=== PATIENT | male | born 1995 | race American Indian/Alaskan Native ===

== ENCOUNTER 2019-01-06 22:49 | Emergency (ER) | payer OTHER ==
[2019-01-06] MEDS ORDERED: KEPPRA 1,000 MG/NS 0.75% 100ML 1,000 MG/100 ML BAG IV ONE (23:00)
[2019-01-06] MEDS ORDERED: ZOFRAN IV ONE (23:01)
[2019-01-06] MEDS ORDERED: BOOSTRIX IM ONE (23:01)
[2019-01-06] MEDS ORDERED: SUBLIMAZE IV ONE (23:01)
--- NOTE | 2019-01-06 23:07 | Emergency Department Report ---
<AMARA KENDRICK - Last Filed: 01/07/19 00:17> ED Seizure HPI - General Stated Complaint: SEIZURE/FACIAL LACERATION Time Seen by Provider: 01/06/19 23:00 - History of Present Illness Initial Comments: Patient is 23 years old male with history of seizure. Patient brought to the emergency room via EMS for evaluation after one episode of seizure happened at home. Seizure was witnessed by patient's mother. Patient presented with a laceration to the right eyebrow and a laceration to the lower lip. Patient denies any other injuries. MD Complaint: seizure -: Sudden Description of Episode: loss of consciousness, tonic-clonic movement, post-event confusion Witnessed:: Yes Trauma: Yes Seizure History: known seizure disorder Place: home Possible Precipitating Event: none Associated Symptoms: denies other symptoms - Related Data Previous Rx's Medication Instructions Recorded Last Taken Type Penicillin Vk [Veetids TAB] 500 mg PO QID 7 Days tablet 01/07/19 Unknown Rx levETIRAcetam [Keppra TAB] 1,500 mg PO BID #60 tablet 01/07/19 Unknown Rx Allergies Allergy/AdvReac Type Severity Reaction Status Date / Time morphine Allergy Rash Verified 01/06/19 23:21 ED Review of Systems Comment: All other systems reviewed and negative Constitutional: denies: chills, fever Respiratory: denies: cough, shortness of breath, SOB with exertion Cardiovascular: denies: chest pain Gastrointestinal: denies: abdominal pain, nausea Musculoskeletal: denies: back pain Neurological: denies: headache, weakness, numbness, paresthesias, confusion, abnormal gait ED Past Medical Hx - Medications Home Medications: Home Medications Medication Instructions Recorded Confirmed Last Taken Type Penicillin Vk [Veetids TAB] 500 mg PO QID 7 Days tablet 01/07/19 Unknown Rx levETIRAcetam [Keppra TAB] 1,500 mg PO BID #60 tablet 01/07/19 Unknown Rx ED Physical Exam - General Limitations: No Limitations General appearance: alert, in no apparent distress - Head Head exam: Present: other (laceration to the right eyebrow, 3 cm) - Eye Eye exam: Present: normal appearance - ENT ENT exam: Present: other (abrasion to the lower lip) - Neck Neck exam: Present: normal inspection, full ROM. Absent: tenderness, mening ismus, lymphadenopathy, thyromegaly - Respiratory Respiratory exam: Present: normal lung sounds bilaterally - Cardiovascular Cardiovascular Exam: Present: regular rate, normal rhythm, normal heart sounds - GI/Abdominal GI/Abdominal exam: Present: soft, normal bowel sounds. Absent: distended, tenderness, guarding, rebound, rigid - Extremities Exam Extremities exam: Present: normal inspection, full ROM, normal capillary refill. Absent: pedal edema, calf tenderness - Back Exam Back exam: Present: normal inspection, full ROM. Absent: tenderness, CVA tenderness (R), CVA tenderness (L), muscle spasm, paraspinal tenderness, vertebral tenderness - Neurological Exam Neurological exam: Present: alert, oriented X3, CN II-XII intact - Skin Skin exam: Present: warm - Laceration /Wound Repair Face Wound Location: face Wound Length (cm): 4 Wound's Depth, Shape: irregular, flap Wound Explored: clean Irrigated w/ Saline (ccs): 50 Betadine Prep?: Yes Anesthesia: 1% Lidocaine Wound Debrided: moderate Wound Repaired With: sutures Suture Size/Type: 5:0 Sterile Dressing Applied?: Yes ED Medical Decision Making - Lab Data Result diagrams: 01/06/19 23:22 ED Disposition Clinical Impression: Seizure, Head injury, Laceration, Periapical abscess Disposition: - TO HOME OR SELFCARE Is pt being admited?: No Condition: Stable Instructions: Suture Care (ED), Laceration (ED), Recurrent Seizures Adult (ED), Dental Abscess (ED) Additional Instructions: Take the medication as prescribed. Follow up with your doctor or the clinic/doctor provided. Return if symptoms worsen as indicated by your discharge instructions. You have been provided a copy of the CAT scan reports. CT facial bones report showed multiple periapical dental abscesses that will need to be treated by a dentist. You have been prescribed antibiotics for these abscesses however, they will not entirely improve until you are treated by a dentist. The CT head shows an abnormality that is suspected to be due to how your brain developed. Follow up with a neurologist and primary care doctor for further evaluation and consideration for MRI if this has not been identified or evaluated in the past. Prescriptions: levETIRAcetam [Keppra TAB] 1,500 mg PO BID #60 tablet Penicillin Vk [Veetids TAB] 500 mg PO QID 7 Days tablet Referrals: [facility] [Provider Group] - 3-5 Days LAUREN NIETO MD [Staff Physician] - 3-5 Days (Neurology) [facility] [Outside] - 3-5 Days <LEONIDES NICE - Last Filed: 01/07/19 04:11> ED Review of Systems ROS: Stated complaint: SEIZURE/FACIAL LACERATION Other details as noted in HPI ED Course Vital Signs 01/06/19 01/06/19 01/07/19 23:07 23:18 01:04 Temperature 98.2 F Pulse Rate 87 72 Respiratory 15 15 23 Rate Blood Pressure 125/71 Blood Pressure 120/70 [Left] O2 Sat by Pulse 98 98 97 Oximetry 01/07/19 02:41 Temperature Pulse Rate 84 Respiratory 18 Rate Blood Pressure Blood Pressure 114/65 [Left] O2 Sat by Pulse 97 Oximetry ED Medical Decision Making - Lab Data Result diagrams: 01/06/19 23:22 01/06/19 23:18 - Radiology Data Radiology results: report reviewed ROCEDURE: CT FACIAL BONES WO CON HISTORY: FALL, FASCIAL TRAUMA FINDINGS: Unenhanced CT of the facial bones was performed and data was reformatted into the sagittal and coronal planes. These images demonstrate that the nasal bones, bony orbits, zygomatic arches, mandible and maxilla appear intact. There is right periorbital soft tissue swelling. Both globes appear intact. There is no retrobulbar hemorrhage. There are periapical dental abscesses of the left maxillary central incisor and the left maxillary lateral incisor. There are periapical dental abscesses of the left mandibular central incisor and the left mandibular lateral incisor. There are periapical dental abscesses of 2 left posterior mandibular molars, sagittal image 46 and there are periapical dental abscesses of the 2 most posterior right mandibular molars. No soft tissue abscess is seen IMPRESSION: No fracture is seen in the facial bones or bony orbits PROCEDURE: CT HEAD/BRAIN WO CON TECHNIQUE: Computerized tomography of the head was performed without contrast material. HISTORY: HEAD INJURY FINDINGS: Unenhanced CT of the brain was performed and demonstrates no acute intracranial hemorrhage, extra-axial fluid collection, midline shift or mass effect. The ventricles and basal cisterns are not effaced. In the medial aspect of left frontal lobe, there is a fluid density structure extending from the anterior margin of the left lateral ventricle to the anterior margin of the frontal lobe. It is possible that this could represent old infarct although the cortex medial to this region is spared and infarct is therefore considered less likely. 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 MRI may be considered if this has not been previously evaluated. The mastoid air cells and middle ears appear clear. There is no evidence of acute sinusitis. The bony calvarium appears intact. IMPRESSION: No acute intracranial hemorrhage Hypodense region in the medial aspect of the frontal lobe, suspicious for developmental brain migrational abnormality - Medical Decision Making Patient has several incidental findings on his CAT scan including periapical multiple periapical abscesses on CT facial bones and possible developmental varient on CT head. Patient will be provided copies of both these cat scans to follow-up with both PMD/neurologist and a dentist for further management. He will be empirically covered with antibiotics for multiple periapical abscesses but we ultimately need a dentist. Critical care attestation.: If time is entered above; I have spent that time in minutes in the direct care of this critically ill patient, excluding procedure time. ED Disposition Is pt being admited?: No Time of Disposition: 04:11
[2019-01-06 23:34] LABS: Basophils % (Auto) 0.3 % (0.0-1.8); Eosinophils # (Auto) 0.1 K/mm3 (0.0-0.4); Eosinophils % (Auto) 0.6 % (0.0-4.3); Hematocrit 42.8 % (35.5-45.6); Hemoglobin 14.8 gm/dl (11.8-15.2); Lymphocytes % (Auto) 24.2 % (13.4-35.0); Mean Corpuscular HGB Conc 35 % (32-34); Mean Corpuscular Volume 89 fl (84-94); Monocytes # (Auto) 0.7 K/mm3 (0.0-0.8); Monocytes % (Auto) 8.6 % (0.0-7.3); Platelet Count 224 K/mm3 (140-440); Red Blood Count 4.83 M/mm3 (3.65-5.03); Red Cell Distribution Width 13.6 % (13.2-15.2)
[2019-01-07 00:20] LABS: Alanine Aminotransferase 20 units/L (7-56); Albumin 4.2 g/dL (3.9-5); BUN/Creatinine Ratio 12; Blood Urea Nitrogen 12 mg/dL (9-20); Calcium 9.4 mg/dL (8.4-10.2); Hemolysis Index 7
[2019-01-07 00:28] LABS: Bilirubin,Direct < 0.2 mg/dL (0-0.2)
--- NOTE | 2019-01-07 03:05 | Cat Scan Report ---
PROCEDURE: CT FACIAL BONES WO CON HISTORY: FALL, FASCIAL TRAUMA FINDINGS: Unenhanced CT of the facial bones was performed and data was reformatted into the sagittal and coronal planes. These images demonstrate that the nasal bones, bony orbits, zygomatic arches, mandible and maxilla ap pear intact. There is right periorbital soft tissue swelling. Both globes appear intact. There is no retrobulbar hemorrhage. There are periapical dental abscesses of the left maxillary central incisor and the left maxillary la teral incisor. There are periapical dental abscesses of the left mandibular central incisor and the l eft mandibular lateral incisor. There are periapical dental abscesses of 2 left posterior mandibular molars, sagittal image 46 and there are periapical dental abscesses of the 2 most posterior right man dibular molars. No soft tissue abscess is seen IMPRESSION: No fracture is seen in the facial bones or bony orbits This document is electronically signed by Reed Sheppard MD., January 07 2019 04:03:53 AM ET
--- NOTE | 2019-01-07 03:49 | Cat Scan Report ---
PROCEDURE: CT HEAD/BRAIN WO CON TECHNIQUE: Computerized tomography of the head was performed without contrast material. HISTORY: HEAD INJURY FINDINGS: Unenhanced CT of the brain was performed and demonstrates no acute intracranial hemorrhage, extra-axial fluid collection, midline shift or mass effect. The ventricles and basal cisterns are no t effaced. In the medial aspect of left frontal lobe, there is a fluid density structure extending from the ante rior margin of the left lateral ventricle to the anterior margin of the frontal lobe. It is possible that this could represent old infarct although the cortex medial to this region is spared and infarct is therefore considered less likely. It more probably represents a developmental migrational abnorma lity such as schizencephaly. MRI may be considered if this has not been previously evaluated. The mastoid air cells and middle ears appear clear. There is no evidence of acute sinusitis. The bony calvarium appears intact. IMPRESSION: No acute intracranial hemorrhage Hypodense region in the medial aspect of the frontal lobe, suspicious for developmental brain migrati onal abnormality This document is electronically signed by Reed Sheppard MD., January 07 2019 04:47:13 AM ET
[2019-01-07 04:41] VITALS: BP 118/53
== END 2019-01-07 04:38 | disposition home or self-care (01) ==
LOC: ED 22:49
DX: S01.511A Laceration without foreign body of lip, initial encounter (principal); S01.111A Laceration without foreign body of right eyelid and periocular area, initial encounter; S09.90XA Unspecified injury of head, initial encounter; G40.909 Epilepsy, unspecified, not intractable, without status epilepticus; K04.7 Periapical abscess without sinus; Z88.6 Allergy status to analgesic agent; W19.XXXA Unspecified fall, initial encounter; Y93.89 Activity, other specified; Y92.009 Unspecified place in unspecified non-institutional (private) residence as the place of occurrence of the external cause; Y99.8 Other external cause status
CPT/HCPCS: 12013; 36415; 70450; 70486; 80048; 80076; 85025; 90471; 90715; 96365; 96375; 99284; J1953; J2405; J3010